=== PATIENT | male | born 1965 | race Two or more races ===

== ENCOUNTER 2017-06-16 18:24 | Emergency (ER) | payer OTHER ==
[~2017-06-16] VITALS: Ht 175.3 cm; Wt 113.4 kg
[~2017-06-16 18:24] MED LIST: LORAPOW30
[2017-06-16] MEDS ORDERED: ACETAMINOPHEN 325 MG TAB PO ONE (20:00)
[2017-06-16 20:02] LABS: Basophils # (auto) 0.1 uL; Eosinophils # (auto) 0.1 uL; Eosinophils % (auto) 0.6 % (0.0-7.0); Hematocrit 46.7 % (41.0-53.0); Lymphocytes # (auto) 2.3 uL; Lymphocytes % (auto) 17.7 % (10.0-50.0); Mean Corpuscular Hemoglobin 31.8 pg (28.0-32.0); Mean Corpuscular Hgb Conc. 34.2 g/dL (32.0-36.0); Mean Corpuscular Volume 92.9 fL (80.0-100.0); Monocytes # (auto) 1.1 uL; Monocytes % (auto) 8.7 % (0.0-12.0); Neutrophils # (auto) 9.2 uL; Nucleated Red Blood Cells % 0.1 %; Platelet Count (auto) 263 10^3/uL (140-450); Red Blood Cells 5.03 10^6/uL (4.5-5.90); Red Cell Distribution Width 13.7 % (11.8-14.3); White Blood Cell 12.8 10^3/uL (4.4-10.8)
[2017-06-16 20:18] LABS: Alanine Aminotransferase 32 U/L (16-61); Albumin 3.3 g/dL (3.4-5.0); Aspartate Aminotransferase 30 U/L (15-37); BUN/Creatinine Ratio 20.4; Blood Urea Nitrogen 22 mg/dL (7-18); Calcium 8.2 mg/dL (8.5-10.1); GFR African American 93 mL/min; GFR Non-African American 77 mL/min
[2017-06-16 20:23] LABS: Alkaline Phosphatase 82 U/L (45-117); Bilirubin, Total 0.5 mg/dL (0.2-1.0); Total Protein 7.9 g/dL (6.4-8.2)
[2017-06-16 20:36] LABS: Anion Gap 10 (5-15); Carbon Dioxide 24 mmol/L (21-32); Chloride 106 mmol/L (98-107); Glucose 140 mg/dL (74-106); Potassium 3.9 mmol/L (3.5-5.1); Sodium 140 mmol/L (136-145)
[2017-06-16] MEDS ORDERED: MORPHINE SULFATE 4 MG/ML SYR/VIAL IV ONE (20:45)
[2017-06-16] MEDS ORDERED: ONDANSETRON HCL 4 MG/2 ML VIAL IV ONE (20:45)
[2017-06-16] MEDS ORDERED: BACITRACIN TOP OINT 1 UD PKG TOP ONE (21:54)
[2017-06-16] MEDS ORDERED: HYDROcodone-ACET 10/325MG TAB PO ONE (23:00)
[2017-06-16] MEDS ORDERED: LORazepam 2MG/ML-1ML VIAL ONE (23:24)
[2017-06-16] MEDS ORDERED: LORazepam 2MG/ML-1ML VIAL IV ONE (23:30)
== END 2017-06-17 00:05 | disposition short-term general hospital (02) ==
LOC: EDBD → ER 18:34 → MERGE 18:34 → ER 06-17 00:05
DX: S02.2XXA Fracture of nasal bones, initial encounter for closed fracture (principal); S01.81XA Laceration without foreign body of other part of head, initial encounter; S13.9XXA Sprain of joints and ligaments of unspecified parts of neck, initial encounter; S09.90XA Unspecified injury of head, initial encounter; I10 Essential (primary) hypertension; W19.XXXA Unspecified fall, initial encounter; Y93.89 Activity, other specified; Y99.8 Other external cause status; Y92.89 Other specified places as the place of occurrence of the external cause
CPT/HCPCS: 12013; 36415; 70450; 70486; 71045; 72125; 80053; 82962; 84484; 85025; 93005; 96374; 96375; 99285; J2060; J2270; J2405; J7030